=== PATIENT | female | born 1995 | race Caucasian/White ===

== ENCOUNTER → 2021-08-03 13:25 | Observation (INO) ==
[2021-08-03 12:23] LABS: Basophils % 0.1 %; Eosinophils % 0.1 %; Hematocrit 42.3 % (35.3-44.9); Hemoglobin 13.5 g/dL (11.5-15.4); Immature Granulocytes % 0.3 % (0-4); Lymphocytes % 13.2 %; Mean Corpuscular HGB Conc 31.9 g/dL (31.6-35.5); Mean Corpuscular Hemoglobin 26.2 pg (28.0-33.3); Mean Platelet Volume 9.7 fL (9.4-12.4); Monocytes # 0.3 K/mcL (0.0-1.3); Monocytes % 4.2 %; Neutrophils # 6.4 K/mcL (1.6-8.9); Platelet Count 318 K/mcL (140-400); Red Blood Count 5.16 M/mcL (3.82-4.97); Red Cell Distribution Width 16.2 % (11.5-14.5); Segmented Neutrophils % 82.1 %; White Blood Count 7.8 K/mcL (4.3-11.1)
[2021-08-03 12:43] LABS: Alanine Aminotransferase 18 Units/L (7-52); Aspartate Amino Transferase 15 Units/L (13-39); Blood Urea Nitrogen 7 mg/dL (6-20); Lactate Dehydrogenase 116 Units/L (140-271); Uric Acid 5.6 mg/dL (2.3-7.6)
== END | disposition home or self-care (01) ==
LOC: 1NENULAB
PROVIDERS: ADMIT Advanced Practice Midwife; ATTEND Advanced Practice Midwife

== ENCOUNTER 2021-08-09 12:12 | Inpatient (IN) ==
[2021-08-09] MEDS ORDERED: Metoclopramide 10 MG/2 ML VIAL IVP PRN ×2 (12:15→20:39)
[2021-08-09] MEDS ORDERED: Ringers Solution, Lactated 1,000 ML IVC SCH (12:15)
[2021-08-09] MEDS ORDERED: Ondansetron 4 MG/2 ML VIAL IVP PRN ×2 (12:15→20:39)
[2021-08-09] MEDS ORDERED: *HR* Nalbuphine 10 MG/ML AMPUL IV PRN ×2 (12:15→19:24)
[2021-08-09] MEDS ORDERED: Famotidine 20 MG/2 ML VIAL IVP PRN (12:15)
[2021-08-09] MEDS ORDERED: Azithromycin 500 MG in 0.9 % Sodium Chloride 250 ML IVPB PRN (12:15)
[2021-08-09] MEDS ORDERED: Naloxone 0.4 MG/ML INJ IVP PRN (12:15)
[2021-08-09 13:38] LABS: Basophils % 0.1 %; Eosinophils % 0.1 %; Hematocrit 42.6 % (35.3-44.9); Hemoglobin 13.6 g/dL (11.5-15.4); Immature Granulocytes % 0.2 % (0-4); Lymphocytes # 1.3 K/mcL (0.6-4.6); Lymphocytes % 14.1 %; Mean Corpuscular HGB Conc 31.9 g/dL (31.6-35.5); Mean Corpuscular Hemoglobin 26.3 pg (28.0-33.3); Mean Corpuscular Volume 82.4 fL (83.0-100.0); Monocytes # 0.4 K/mcL (0.0-1.3); Monocytes % 3.9 %; Neutrophils # 7.4 K/mcL (1.6-8.9); Platelet Count 345 K/mcL (140-400); Red Blood Count 5.17 M/mcL (3.82-4.97); Red Cell Distribution Width 16.1 % (11.5-14.5); Segmented Neutrophils % 81.6 %
[2021-08-09 13:50] LABS: Amphetamine Screen,Urine Negative ng/mL (Cutoff=1000); Barbiturate Screen,Urine Negative ng/mL (Cutoff=200); Benzodiazepines Screen,Urine Negative ng/mL (Cutoff=200); Cannabinoid Screen,Urine Negative ng/mL (Cutoff = 50); Cocaine Screen,Urine Negative ng/mL (Cutoff= 300); Creatinine,Urine 54 mg/dL; Opiate Screen,Urine Negative ng/mL (Cutoff=300); Phencyclidine Screen,Urine Negative ng/mL (Cutoff=25); Protein/Creatinine Ratio,Urine 0.26 mg/mg (0.00-0.20)
[2021-08-09 13:54] LABS: Alanine Aminotransferase 20 Units/L (7-52); Aspartate Amino Transferase 18 Units/L (13-39); BUN/Creatinine Ratio 16 (6-26); Blood Urea Nitrogen 7 mg/dL (6-20); Lactate Dehydrogenase 116 Units/L (140-271); Uric Acid 5.7 mg/dL (2.3-7.6); eGFR For African Americans > 60 (> 60); eGFR For Non-African Americans > 60 (> 60)
[2021-08-09] MEDS ORDERED: CeFAZolin Syr 3,000MG/30 ML 3,000 MG/30 ML SYRINGE IVPB ONE (14:14)
[2021-08-09] MEDS ORDERED: Famotidine 20 MG/2 ML VIAL IVP ONE (14:14)
[2021-08-09] MEDS ORDERED: Metoclopramide 10 MG/2 ML VIAL IVP ONE (14:14)
[2021-08-09 14:27] LABS: Influenza A PCR Negative (Negative); Influenza B PCR Negative (Negative); Resp. Syncytial Virus PCR Negative (Negative)
[2021-08-09 14:32] LABS: SARS-CoV-2 by PCR (In House) Negative (Negative)
[2021-08-09] MEDS ORDERED: Acetaminophen IV 1,000 MG/100 ML BAG IVPB ONE ×2 (14:54→17:52)
[2021-08-09 15:53] LABS: Bilirubin,Urine Negative (Negative); Blood,Urine Trace-intact (Negative); Clarity,Urine Clear (Clear); Color,Urine Yellow (Yellow); Glucose,Urine (UA) Normal (Normal); Ketones,Urine 40 mg/dL (Negative); Leukocyte Esterase,Urine Negative (Negative); Nitrite,Urine Negative (Negative); Protein,Urine 30 mg/dL (Neg-Trace); Urobilinogen,Urine Normal (Normal)
[2021-08-09 16:05] LABS: Bacteria,Urine Many per hpf (None-Few); RBC,Urine 0-3 per hpf (0-3); Squamous Epithelial Cell,Urine Many per hpf (None-Few); WBC,Urine 0-3 per hpf (0-3)
[2021-08-09] MEDS ORDERED: *HR* FentaNYL (PF) 100 MCG/2 ML VIAL ONE (17:00)
[2021-08-09] MEDS ORDERED: *HR* Morphine Sulfate/PF 10 MG/10 ML AMPUL ONE (17:00)
[2021-08-09] MEDS ORDERED: Ondansetron 4 MG/2 ML VIAL ONE (17:01)
[2021-08-09] MEDS ORDERED: Ketorolac 30 MG/ML VIAL ONE (18:03)
[2021-08-09] MEDS ORDERED: Oxytocin 20 units/ LR 1000 mL 20 UNIT/1,000 ML BAG IVC SCH (20:39)
[2021-08-09] MEDS ORDERED: Simethicone 80 MG TAB.CHEW PO SCH (21:00)
[2021-08-09] MEDS: Acetaminophen 325 MG TABLET PO SCH (23:11)
[2021-08-10 05:13] LABS: Basophils % 0.1 %; Eosinophils % 0.1 %; Hematocrit 35.6 % (35.3-44.9); Immature Granulocytes % 0.4 % (0-4); Lymphocytes # 1.7 K/mcL (0.6-4.6); Lymphocytes % 23.1 %; Mean Corpuscular HGB Conc 31.7 g/dL (31.6-35.5); Mean Corpuscular Hemoglobin 26.3 pg (28.0-33.3); Mean Corpuscular Volume 82.8 fL (83.0-100.0); Mean Platelet Volume 9.8 fL (9.4-12.4); Monocytes # 0.4 K/mcL (0.0-1.3); Monocytes % 5.8 %; Neutrophils # 5.3 K/mcL (1.6-8.9); Platelet Count 234 K/mcL (140-400); Red Cell Distribution Width 16.1 % (11.5-14.5); Segmented Neutrophils % 70.5 %; White Blood Count 7.5 K/mcL (4.3-11.1)
[2021-08-10 05:14] LABS: Hemoglobin 11.3 g/dL (11.5-15.4)
[2021-08-10] MEDS: Ibuprofen 600 MG TABLET PO SCH ×3 (06:27→20:19)
[2021-08-10] MEDS: *HR* OxyCODONE Immed Rel 5 MG TABLET PO PRN ×3 (06:28→20:19)
[2021-08-10] MEDS: Acetaminophen 325 MG TABLET PO SCH ×3 (06:28→20:19)
[2021-08-10] MEDS: Prenatal Vit/FA 1 EACH TABLET PO SCH (10:06)
[2021-08-10] MEDS: *HR* Enoxaparin 60 MG/0.6 ML SYRINGE SQ SCH ×2 (10:07→20:20)
[2021-08-11] MEDS: Acetaminophen 325 MG TABLET PO SCH (04:27)
[2021-08-11] MEDS: Ibuprofen 600 MG TABLET PO SCH (04:27)
[2021-08-11 06:43] VITALS: BP 110/71; PULSE 90; TEMP 98; O2SAT 98
[2021-08-11] MEDS: Prenatal Vit/FA 1 EACH TABLET PO SCH (08:11)
[2021-08-11] MEDS: *HR* Enoxaparin 60 MG/0.6 ML SYRINGE SQ SCH (08:11)
== END 2021-08-11 11:49 | disposition home or self-care (01) | DRG 788 ==
LOC: 1NENULAB 12:12 → 1NENUOBS 21:40
PROVIDERS: ADMIT Obstetrics & Gynecology; ATTEND Obstetrics & Gynecology